=== PATIENT | male | born 1955 | race African-American/Black ===

== ENCOUNTER 2017-10-14 12:50 | Emergency (ER) | payer SELFPAY ==
[~2017-10-14] VITALS: Ht 175.3 cm; Wt 100.0 kg
[~2017-10-14 12:50] MED LIST: ATOR80TA PO; ISOS30TA6 PO; METO-396 PO; NITR0.4T49 SL
[2017-10-14 13:47] VITALS: BP 179/119
== END 2017-10-14 16:00 | disposition left against medical advice (07) ==
LOC: ER 15:33
DX: Z02.79 Encounter for issue of other medical certificate (principal)
CPT/HCPCS: 99281